=== PATIENT | male | born 1990 | race Caucasian/White ===

== ENCOUNTER 2018-03-24 11:55 | Emergency (ER) | payer OTHER ==
[~2018-03-24] VITALS: Ht 172.7 cm; Wt 59.0 kg
[2018-03-24 12:00] VITALS: BP_SYST 124
--- NOTE | 2018-03-24 12:03 | NUR ---
Patient to ER [facility] to [facility] for evaluation. Side rails up. Assumed care of patient.
--- NOTE | 2018-03-24 12:10 | NUR ---
Written and verbal consent obtained from patient for blood alcohol, name and verified by patient. Disinfected patient's skin with that did not contain alcohol or other volatile organic compound. Collected the blood from the subject named by venipuncture, in the presence of [facility] Officer Rajan De La Cruz [id number]. Used a sterile, dry hypodermic needle and dry vacuum blood collection. The dry vacuum blood collection tubes were supplied by the officer named above. Withdrew specimens of blood from right ac of the subject named above. Inverted the blood tubes several times to ensure that the preservative and anticoagulant were thoroughly mixed in the blood specimens. I initialed the blood tube labels for identification. The labeled blood tubes were handed directly to the Officer named above. The blood tube stoppers remained in place while I had possession of the blood tubes. The Officer placed both tubes into envelope and sealed it in my presence. Envelope initialed by myself and Officer named above. Patient tolerated well, bandage applied, and bleeding controlled.
--- NOTE | 2018-03-24 12:18 | NUR ---
Patient was discharged in custody of Officer Rajan to correction.
== END 2018-03-24 12:18 ==
LOC: SED 11:55
DX: Z02.83 Encounter for blood-alcohol and blood-drug test (principal)